=== PATIENT | male | born 1950 | race Caucasian/White ===

== ENCOUNTER 2018-04-08 13:40 | Outpatient (CLI) | payer MEDICARE, OTHER | END 2018-04-08 13:41 | disposition home or self-care (01) | LOC: BICRAD 13:40 | PROVIDERS: ATTEND Internal Medicine Rheumatology | DX: M06.4 Inflammatory polyarthropathy (principal); R91.1 Solitary pulmonary nodule | CPT/HCPCS: 71046 ==